=== PATIENT | female | born 2000 | race Two or more races ===

== ENCOUNTER 2025-08-09 10:45 | Inpatient (IN) | payer OTHER ==
[~2025-08-09] VITALS: Ht 152.4 cm; Wt 58.1 kg
[2025-08-09 12:01] VITALS: BP 120/76
[2025-08-09] MEDS ORDERED: METHIMAZOLE10 MG PO (12:01)
[2025-08-19] MEDS ORDERED: DEXAMETHASONE SODIUM PHOSPHATE 4 MG/ML VIAL ONE (15:35)
[2025-08-19] MEDS ORDERED: ONDANSETRON HCL 2 MG/ML VIAL IV PRN (18:30)
[2025-08-19] MEDS ORDERED: ENALAPRILAT DIHYDRATE 1.25 MG/ML VIAL IV PRN (18:30)
[2025-08-19] MEDS ORDERED: ENALAPRILAT DIHYDRATE 1.25 MG/ML VIAL IV ONE (19:26)
[2025-08-19] MEDS ORDERED: PANTOPRAZOLE SODIUM 40 MG/VIAL VIAL ONE (20:57)
[2025-08-19] MEDS ORDERED: PANTOPRAZOLE SODIUM 40 MG/VIAL VIAL IV PUSH SCH (21:00)
[2025-08-19 21:40] VITALS: BP 133/83; O2SAT 98
[2025-08-19] MEDS ORDERED: CALCITRIOL 0.5 MCG CAPSULE PO NR (22:00)
[2025-08-20 00:33] VITALS: BP 127/72; O2SAT 100
[2025-08-20] MEDS ORDERED: Calcium Carbonate 1 TAB TABLET PO SCH (01:00)
[2025-08-20] MEDS ORDERED: ACETAMINOPHEN 500 MG GEL..CAP PO SCH (01:00)
[2025-08-20] MEDS ORDERED: TRAMADOL HCL 50 MG TABLET PO SCH (01:00)
[2025-08-20] MEDS ORDERED: LEVOTHYROXINE SODIUM 88 MCG TABLET PO SCH (06:00)
[2025-08-20 08:33] VITALS: BP 116/71; O2SAT 97
[2025-08-20] MEDS ORDERED: LIDOCAINE HCL 30 ML,MAG HYDROX/ALUMINUM HYD/SIMETH 30 ML,DIPHENHYDRAMINE HCL 75 MG MM SCH (09:00)
[2025-08-20] MEDS ORDERED: CALCITRIOL 0.5 MCG CAPSULE PO SCH (09:00)
[2025-08-20] MEDS ORDERED: CYCLOBENZAPRINE HCL 5 MG TABLET PO SCH (17:00)
== END 2025-08-20 15:50 | disposition home or self-care (01) | DRG 627 ==
LOC: SURH 08-19 09:45 → SURG 08-19 12:00 → O/R 08-19 12:00 → SURG 08-19 20:13
PROVIDERS: ADMIT Surgery; ATTEND Surgery
PROC: 0GSL0ZZ Reposition Right Superior Parathyroid Gland, Open Approach (ICD-10-PCS; 2025-08-19)
PROC: 00QQ0ZZ Repair Vagus Nerve, Open Approach (ICD-10-PCS; 2025-08-19)
PROC: 0GTH0ZZ Resection of Right Thyroid Gland Lobe, Open Approach (ICD-10-PCS; principal; 2025-08-19 09:45)
DX: E06.3 Autoimmune thyroiditis (principal); E05.00 Thyrotoxicosis with diffuse goiter without thyrotoxic crisis or storm